=== PATIENT | female | born 1950 | race Caucasian/White ===

== ENCOUNTER 2019-08-16 09:07 | Day surgery (SDC) | payer MEDICARE, MEDICAID ==
[~2019-08-16] VITALS: Ht 172.7 cm; Wt 93.0 kg
[~2019-08-16 09:07] MED LIST: ALBU8.5H8 INH; ALEN70TA6 PO; ASCO500T23 PO; GABA-826 PO; LAMO100T PO; MAGN250T8 PO; METO25TA35 PO; NORT25CA78 PO; OMEP40CA42 PO; OXYC10TA6 PO; SERT50TA PO; TACR1CAP4 PO; TIOT18CA INH
[2019-08-16 09:42] VITALS: BP 128/81
[2019-08-16] MEDS ORDERED: SODIUM CHLORIDE 0.9% 1,000 ML IV ONE (09:44)
[2019-08-16] MEDS ORDERED: LIDOCAINE 1%, 10ML ONE (10:10)
[2019-08-16] MEDS ORDERED: FLUMAZENIL 0.1 MG/1 ML, 5ML ONE (10:24)
[2019-08-16] MEDS ORDERED: FENTANYL PF 100 MCG/2ML ONE ×2 (10:24)
[2019-08-16] MEDS ORDERED: NALOXONE 1 MG/ML, 2ML ONE (10:24)
[2019-08-16] MEDS ORDERED: MIDAZOLAM 1 MG/ML, 5ML ONE (10:24)
== END 2019-08-16 13:15 | disposition home or self-care (01) ==
LOC: OUT 09:07
PROVIDERS: ATTEND Internal Medicine Gastroenterology
DX: R74.8 Abnormal levels of other serum enzymes (principal); I10 Essential (primary) hypertension; E11.9 Type 2 diabetes mellitus without complications; J43.9 Emphysema, unspecified; Z87.891 Personal history of nicotine dependence; Z88.0 Allergy status to penicillin; Z88.2 Allergy status to sulfonamides; Z88.5 Allergy status to narcotic agent; Z88.8 Allergy status to other drugs, medicaments and biological substances; Z91.030 Bee allergy status; Z91.040 Latex allergy status; Z91.013 Allergy to seafood; Z94.4 Liver transplant status; Z99.81 Dependence on supplemental oxygen
CPT/HCPCS: 47000; 76942; 88307; 88313; 99156; 99157; J2250; J3010; J2310